=== PATIENT | male | born 1965 | race African-American/Black ===

== ENCOUNTER 2019-12-31 22:40 | Inpatient (IN) | payer SELFPAY ==
[~2019-12-31] VITALS: Ht 170.2 cm; Wt 111.0 kg
[2019-12-31 23:14] LABS: CREATININE 1.1 mg/dL (0.7-1.3); GFR 69.8
[2019-12-31 23:27] LABS: INFLUENZA A PATIENT NEGATIVE (NEGATIVE); INFLUENZA B PATIENT POSITIVE (NEGATIVE)
[2019-12-31 23:31] LABS: ALBUMIN 3.7 g/dL (3.4-5.0); ALBUMIN/GLOBULIN RATIO 1.1 (1.0-1.7); BASO # 0.1 x10^3/uL (0.0-0.2); BASO % 1 % (0-3); EOS # 0.2 x10^3/uL (0.0-0.7); EOS % 2 % (0-3); MAGNESIUM 2.1 mg/dL (1.8-2.4); MEAN CORPUSCULAR HEMOGLOBIN 26 pg (25-35); MEAN CORPUSCULAR VOLUME 84 fL (79-100); MONO # 0.8 x10^3/uL (0.0-1.1); MONO % 9 % (0-9); NEUT # 5.3 x10^3uL (1.8-7.7); TOTAL BILIRUBIN 0.3 mg/dL (0.2-1.0)
[2019-12-31 23:33] LABS: RED BLOOD COUNT 5.41 x10^6/uL (4.30-5.70)
[2019-12-31 23:34] LABS: HEMATOCRIT 45.6 % (39.0-53.0); LYMPH # 2.6 x10^3/uL (1.0-4.8); LYMPH % 29 % (24-48); MEAN CORPUSCULAR HGB CONC 31 g/dL (31-37); NEUT % 59 % (31-73); PLATELET COUNT 196 x10^3/uL (140-400); RED CELL DISTRIBUTION WIDTH 16.1 % (11.5-14.5)
[2019-12-31] MEDS ORDERED: DEXAMETHASONE SOD PHOS 10 MG/ML VIAL ONE (23:57)
[2019-12-31] MEDS ORDERED: ASPIRIN 325 MG TABLET ONE (23:57)
[2020-01-01] VITALS (18 sets, daily range): BP systolic 115–178; BP diastolic 49–103
--- NOTE | 2020-01-01 00:14 | PHYS DOC ---
Past History Past Medical History: CAD (?), High Cholesterol, Hypertension, Other Additional Past Medical Histor: 7 mild CA no stents placed, Prediabetic Past Surgical History: Other Additional Past Surgical Histo: back and hernia Smoking: Cigarettes Alcohol Use: None Drug Use: None Social History Narrative: drug use 32 years ago Adult General Chief Complaint Chief Complaint: CHEST PAIN HPI HPI 54-year-old male presents with report of chest pain and cough times one week. Reports associated nasal congestion. Reports generalized malaise and weakness. Patient reports significant cardiac history including several "mild heart attacks ". Risk factors also include hypertension, high cholesterol, smoking history, and prediabetes. Denies trauma. Denies leg swelling or calf tenderness. Review of Systems Review of Systems Constitutional: Denies fever or chills; reports generalized malaise Eyes: Denies redness or eye pain HENT: Reports nasal congestion; denies sore throat Respiratory: Reports cough and shortness of breath Cardiovascular: Reports chest pain and palpitations GI: Denies abdominal pain, nausea, or vomiting : Denies dysuria or hematuria Musculoskeletal: Denies back pain or joint pain Integument: Denies rash or skin lesions Neurologic: Denies headache, focal weakness or sensory changes Complete systems were reviewed and found to be within normal limits, except as documented in this note. Current Medications Current Medications Current Medications Medications (Trade) Dose Ordered Sig/Alek Start Time Stop Time Status Last Admin Dose Admin Albuterol/ Ipratropium (Duoneb) 3 ml 1X ONCE 01/01/20 00:30 01/01/20 00:31 Aspirin (Armin Aspirin) 325 mg STK-MED ONCE 12/31/19 23:57 12/31/19 23:57 DC Dexamethasone Sodium Phosphate (Decadron) 10 mg STK-MED ONCE 12/31/19 23:57 12/31/19 23:57 DC Oseltamivir Phosphate (Tamiflu) 75 mg 1X ONCE 01/01/20 00:30 01/01/20 00:31 Sodium Chloride 1,000 ml @ 1,000 mls/hr 1X ONCE 01/01/20 00:30 01/01/20 01:29 Allergies Allergies Allergies Coded Allergies Type Severity Reaction Last Updated Verified No Known Drug Allergies 12/31/19 No Physical Exam Physical Exam Constitutional: Well developed, well nourished, no acute distress, non-toxic appearance HENT: Normocephalic, atraumatic, oropharynx moist Eyes: Conjunctiva normal, no discharge Neck: Normal range of motion, no tenderness, supple Cardiovascular: Heart rate normal, regular rhythm Lungs & Thorax: Bilateral breath sounds clear to auscultation, no wheezing Abdomen: Soft, no tenderness Skin: Warm, dry, no erythema, no rash Back: No tenderness, no CVA tenderness Extremities: No tenderness, ROM intact, no edema Neurologic: Alert and oriented X 3, normal motor function, normal sensory function, no focal deficits noted Psychologic: Affect anxious, judgment normal Current Patient Data Vital Signs Vital Signs Date Time Temp Pulse Resp B/P (MAP) Pulse Ox O2 Delivery O2 Flow Rate FiO2 12/31/19 23:49 72 20 136/93 (107) 97 Room Air 12/31/19 22:40 99.4 Lab Results Laboratory Tests Test 12/31/19 22:40 12/31/19 22:50 White Blood Count 9.0 x10^3/uL (4.0-11.0) Red Blood Count 5.41 x10^6/uL (4.30-5.70) Hemoglobin 14.0 g/dL (13.0-17.5) Hematocrit 45.6 % (39.0-53.0) Mean Corpuscular Volume 84 fL (79-100) Mean Corpuscular Hemoglobin 26 pg (25-35) Mean Corpuscular Hemoglobin Concent 31 g/dL (31-37) Red Cell Distribution Width 16.1 % (11.5-14.5) H Platelet Count 196 x10^3/uL (140-400) Neutrophils (%) (Auto) 59 % (31-73) Lymphocytes (%) (Auto) 29 % (24-48) Monocytes (%) (Auto) 9 % (0-9) Eosinophils (%) (Auto) 2 % (0-3) Basophils (%) (Auto) 1 % (0-3) Neutrophils # (Auto) 5.3 x10^3uL (1.8-7.7) Lymphocytes # (Auto) 2.6 x10^3/uL (1.0-4.8) Monocytes # (Auto) 0.8 x10^3/uL (0.0-1.1) Eosinophils # (Auto) 0.2 x10^3/uL (0.0-0.7) Basophils # (Auto) 0.1 x10^3/uL (0.0-0.2) Prothrombin Time 10.3 SEC (9.4-11.4) Prothrombin Time INR 1.0 (0.9-1.1) Activated Partial Thromboplast Time 27 SEC (23-33) D-Dimer (Kaleigh) 0.40 mg/L (0.00-0.50) Sodium Level 143 mmol/L (136-145) Potassium Level 4.0 mmol/L (3.5-5.1) Chloride Level 104 mmol/L (98-107) Carbon Dioxide Level 29 mmol/L (21-32) Anion Gap 10 (6-14) Blood Urea Nitrogen 19 mg/dL (8-26) Creatinine 1.1 mg/dL (0.7-1.3) Estimated GFR (Cockcroft-Gault) 69.8 BUN/Creatinine Ratio 17 (6-20) Glucose Level 100 mg/dL (70-99) H Calcium Level 9.0 mg/dL (8.5-10.1) Magnesium Level 2.1 mg/dL (1.8-2.4) Total Bilirubin 0.3 mg/dL (0.2-1.0) Aspartate Amino Transferase (AST) 41 U/L (15-37) H Alanine Aminotransferase (ALT) 40 U/L (16-63) Alkaline Phosphatase 53 U/L (46-116) Creatine Kinase 1925 U/L (39-308) H Creatine Kinase MB (Mass) 16.6 ng/mL (0.0-3.6) H Creatine Kinase MB Relative Index 0.9 % (0-4) Troponin I Quantitative 0.179 ng/mL (0-0.055) H GU-Fbf-R-Type Natriuretic Peptide 971 pg/mL (0-124) H Total Protein 7.0 g/dL (6.4-8.2) Albumin 3.7 g/dL (3.4-5.0) Albumin/Globulin Ratio 1.1 (1.0-1.7) Lipase 128 U/L (73-393) Influenza Type A (Rapid) Negative (NEGATIVE) Influenza Type B (Rapid) Positive (NEGATIVE) EKG EKG @2241 NSR at 78bpm, NO ST elevation, occasional PVC, T wave inversion V3-V6, QRS 90ms, QT/QTc 460ms/529ms Radiology/Procedures Radiology/Procedures PROCEDURE: CHEST PA & LATERAL CHEST PA LATERAL History: Chest pain. Cough. Comparison: None. Findings: Patchy bibasilar opacities. No pleural effusion. No pneumothorax. Normal heart size. Impression: 1. Patchy bibasilar opacities, most likely atelectasis. Recommend follow-up to exclude developing consolidations. Electronically signed by: Pj Mays DO (01/01/2020 2:43 AM) [id number] Course & Med Decision Making Course & Med Decision Making Pertinent Labs and Imaging studies reviewed. (See chart for details) Patient with significant cardiac risk factors presents with one-week history of chest discomfort with associated cough. EKG with T wave depressions. No prior EKG for comparison. Labs obtained and posted to chart. CPK greater than 1900. Troponin elevated at 0.17. Rapid influenza positive for influenza B. Chest x- ray with signs of atelectasis without focal opacity consistent for pneumonia. Symptomatic treatment provided with IV steroid and respiratory nebs. Concern influenza B may be causing elevation of his troponin. Patient requiring admission for further evaluation and treatment. 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 Discussed with Dr. Ricks (hospitalist) who is in agreement with transfer for admission to [facility]. Dr. Ricks requests initiation of Tamiflu despite timing of onset of symptoms. [place] on high volume and without beds available on cardiac unit. Repeat CPK and Troponin obtained with improvement. Discussed new results with Dr. Ricks, who is in agreement now to keep patient at [place] in ICU. Cardiology consult placed. Discussed findings and plan with patient, who acknowledges understanding and agreement. Dragon Disclaimer Dragon Disclaimer This electronic medical record was generated, in whole or in part, using a voice recognition dictation system. Departure Departure: Impression: Primary Impression: Elevated troponin Additional Impressions: Influenza B Elevated CPK Disposition: ADMITTED INPATIENT Admitting Physician: Padma Ricks Condition: GUARDED Referrals: PCP,NO (PCP) HEART Score for Chest Pain PTs The HEART Score for CP Pts HEART Score for Chest Pain: HEART Score for Chest Pain Response (Comments) Value History Moderately Suspicious 1 ECG Nonspecific Repolarizatio 1 Age >45 - < 65 1 Risk Factors >3 Risk Factors or Hx CAD 2 Troponin >3 x Normal Limit 2 Total 7 Risk Factors: Risk Factors: DM, Current or recent (<one month) smoker, HTN, HLP, family history of CAD, obesity. Risk Scores: Score 0 - 3: 2.5% MACE over next 6 weeks - Discharge Home Score 4 - 6: 20.3% MACE over next 6 weeks - Admit for Clinical Observation Score 7 - 10: 72.7% MACE over next 6 weeks - Early Invasive Strategies Critical Care Time Critical care time was 30 minutes which includes time at bedside, spent in discussion of patient's care with specialists and/or family members, with interpretation of laboratory and/or radiological studies and is exclusive of procedures. Problem Qualifiers LAURA AMOR DO Jan 01, 2020 00:14
[2020-01-01] MEDS ORDERED: IV NORMAL SALINE 1,000ML 1,000 ML IV ONE ×2 (00:30→03:15)
[2020-01-01] MEDS ORDERED: ASPIRIN 325 MG TABLET PO ONE (00:30)
[2020-01-01] MEDS ORDERED: DEXAMETHASONE SOD PHOS 10 MG/ML VIAL IV ONE (00:30)
[2020-01-01] MEDS ORDERED: IPRATRPIUM/ALBUTEROL 0.5/2.5MG 3 ML NEBU. NEB ONE (00:30)
[2020-01-01] MEDS ORDERED: OSELTAMIVIR 75 MG CAPSULE PO ONE (00:30)
[2020-01-01] MEDS ORDERED: OXYMETAZOLINE 0.05% NASAL SPRAY 30ML BOTTLE. NS ONE (02:30)
--- NOTE | 2020-01-01 02:46 | RAD ---
CHEST PA LATERAL History: Chest pain. Cough. Comparison: None. Findings: Patchy bibasilar opacities. No pleural effusion. No pneumothorax. Normal heart size. Impression: 1. Patchy bibasilar opacities, most likely atelectasis. Recommend follow-up to exclude developing consolidations. Electronically signed by: Pj Mays DO (01/01/2020 2:43 AM) [id number]
[2020-01-01] MEDS ORDERED: NITROGLYCERIN SUBLINGUAL 0.4 MG BOTTLE OF 25. SL PRN ×2 (03:15→14:30)
[2020-01-01] MEDS ORDERED: ONDANSETRON PF 4 MG/2 ML VIAL. IV PRN (03:15)
[2020-01-01] MEDS ORDERED: DEXTROSE 50% 25 GM / 50ML DISP.SYRIN. IV PRN (03:15)
[2020-01-01] MEDS ORDERED: ALBUTEROL SULFATE 2.5 MG/3 ML NEBU. NEB PRN (03:30)
--- NOTE | 2020-01-01 03:40 | NUR ---
Admission Note: Pt transported via EMS to ICU room 4, pt able to ambulate w/no assistance from cart to bed, VSS, no c/o pain or n/v at this time. Pt expresses a desire to eat as he has not eaten in 12 hours, admission documentation complete, pt oriented to room, call light w/i reach, bedside table near bed. Will continue to monitor.
[2020-01-01] MEDS ORDERED: AMLO10TA4 PO (03:50)
[2020-01-01] MEDS ORDERED: METF10007 PO (03:50)
[2020-01-01] MEDS ORDERED: ATOR40TA59 PO (03:54)
[2020-01-01] MEDS ORDERED: ASPI-630 PO (03:54)
[2020-01-01] MEDS ORDERED: HYDR25TA10 PO (03:54)
[2020-01-01] MEDS ORDERED: LISI40TA PO (03:54)
[2020-01-01] MEDS ORDERED: NITR0.4T22 SL (03:54)
[2020-01-01] MEDS ORDERED: CARV25TA2 PO (03:54)
[2020-01-01 04:05] LABS: CLARITY,URINE CLEAR; COLOR,URINE AMBER
[2020-01-01 04:06] LABS: BACTERIA,URINE FEW /HPF (0-FEW); BILIRUBIN,URINE NEG (NEG); GLUCOSE,URINE NEG (NEG); HYALINE CASTS, URINE OCC /HPF; NITRITE,URINE NEG (NEG); SQUAMOUS EPITHELIAL CELL,UR OCC /LPF; UROBILINOGEN,URINE 0.2 mg/dL (0.2 mg/dL); WBC,URINE OCC /HPF (0-4)
--- NOTE | 2020-01-01 04:51 | NUR ---
IV fluids ordered in ED. Pt received 1 liter NS in ED. BNP is 971 and pt is eating and drinking. IV fluids not started on floor.
--- NOTE | 2020-01-01 05:00 | NUR ---
pt desats into low 80s when asleep. oxygen 3liters NC applied, sating 90%
[2020-01-01] MEDS ORDERED: OXYMETAZOLINE 0.05% NASAL SPRAY 30ML BOTTLE. NS PRN (07:45)
[2020-01-01] MEDS: INSULIN LISPRO 300 UNITS/3 ML VIAL. SQ SCH ×3 (08:00→17:00)
[2020-01-01] MEDS ORDERED: amLODIPine BESYLATE 10 MG TABLET PO SCH ×3 (09:00→21:00)
--- NOTE | 2020-01-01 09:20 | PDOC2 ---
CONSULT Date of Admission DATE: 01/01/20 TIME: 09:20 Reason for Consult: Slightly elevated troponin level Referring Physician: Dr. Ricks Chief Complaint Cough, shortness of breath and chest pain Source: Chart review, Patient Problem List Problems Medical Problems: (1) Elevated CPK Status: Acute (2) Elevated troponin Status: Acute (3) Influenza B Status: Acute History of Present Illness 54-year-old -[place] male presented complaining of cough, shortness of breath and chest pain. He was diagnosed with influenza B and admitted for further management. His CPK and troponin level were abnormal prompting cardiology consultation. Patient stated that he had mild heart attack in the past but cardiac catheterization in November 2018 and apparently did not show any significant blockages. He denied any palpitations or syncope. Past Medical History Hypertension Hyperlipidemia DM-2 Past Surgical History Hernia and back surgery Family History Negative for premature coronary artery disease Social History Patient admitted to smoking cigarettes but denied any alcohol abuse. He stopped using drugs approximately 30 years ago. Current Medications Current Medications Albuterol/ Ipratropium (Duoneb) 3 ml 1X ONCE NEB Last administered on 01/01/20at 00:30; Start 01/01/20 at 00:30; Stop 01/01/20 at 00:31; Status DC Aspirin (Armin Aspirin) 325 mg 1X ONCE PO Last administered on 01/01/20at 00:03; Start 01/01/20 at 00:30; Stop 01/01/20 at 00:31; Status DC Dexamethasone Sodium Phosphate (Decadron) 10 mg 1X ONCE IV Last administered on 01/01/20at 00:03; Start 01/01/20 at 00:30; Stop 01/01/20 at 00:31; Status DC Aspirin (Armin Aspirin) 325 mg STK-MED ONCE .ROUTE ; Start 12/31/19 at 23:57; Stop 12/31/19 at 23:57; Status DC Dexamethasone Sodium Phosphate (Decadron) 10 mg STK-MED ONCE .ROUTE ; Start 12/31/19 at 23:57; Stop 12/31/19 at 23:57; Status DC Sodium Chloride 1,000 ml @ 1,000 mls/hr 1X ONCE IV Last administered on 01/01/20at 00:33; Start 01/01/20 at 00:30; Stop 01/01/20 at 01:29; Status DC Oseltamivir Phosphate (Tamiflu) 75 mg 1X ONCE PO Last administered on 01/01/20at 00:32; Start 01/01/20 at 00:30; Stop 01/01/20 at 00:31; Status DC Oxymetazoline HCl (Afrin) 2 spray 1X ONCE NS Last administered on 01/01/20at 02:41; Start 01/01/20 at 02:30; Stop 01/01/20 at 02:31; Status DC Ondansetron HCl (Zofran) 4 mg PRN Q4HRS PRN IV NAUSEA/VOMITING; Start 01/01/20 at 03:15; Stop 01/02/20 at 03:14 Nitroglycerin (Nitrostat) 0.4 mg PRN Q5MIN PRN SL CHEST PAIN; Start 01/01/20 at 03:15; Stop 01/02/20 at 03:14 Albuterol Sulfate (Ventolin) 2.5 mg PRN Q4HRS PRN NEB WHEEZING; Start 01/01/20 at 03:30 Insulin Human Lispro (HumaLOG) 0-5 UNITS TIDWMEALS SQ ; Start 01/01/20 at 08:00 Dextrose (Dextrose 50%-Water Syringe) 12.5 gm PRN Q15MIN PRN IV SEE COMMENTS; Start 01/01/20 at 03:15 Sodium Chloride 1,000 ml @ 125 mls/hr 1X ONCE IV ; Start 01/01/20 at 03:15; Stop 01/01/20 at 11:14 Oxymetazoline HCl (Afrin) 2 spray PRN BID PRN NS NASAL CONGESTION; Start 01/01/20 at 07:45 Active Scripts Active Reported NITROGLYCERIN SubLingual (Nitroglycerin) 0.4 Mg Tab.subl 0.4 Mg SL PRN Q5MIN PRN Atorvastatin Calcium 40 Mg Tablet 40 Mg PO QHS Aspirin 81 Mg Tab.chew 81 Mg PO [id number] Hydrochlorothiazide 25 Mg Tablet 25 Mg PO DAILY Lisinopril 40 Mg Tablet 40 Mg PO DAILY Carvedilol 25 Mg Tablet 25 Mg PO BIDWMEALS Metformin Hcl 1,000 Mg Tablet 1,000 Mg PO BIDWMEALS Norvasc (Amlodipine Besylate) 10 Mg Tablet 10 Mg PO DAILY Allergies: Coded Allergies: No Known Drug Allergies (Unverified , 12/31/19) PSYCHOLOGICAL ROS: No: Hallucinations Eyes: No: Loss of vision HEENT: No: Epistaxis Respiratory: YES: Cough, Shortness of breath Cardiovascular: yes: Chest Pain Gastrointestinal: No: Vomiting, Diarrhea Neurological: No: Seizures Skin: No: Rash General: Alert, Oriented X3 HEENT: Atraumatic Lungs: Other (scattered crepitations bilaterally) Heart: Regular rate Abdomen: Soft Extremities: No edema VITALS Vital Signs Date Time Temp Pulse Resp B/P (MAP) Pulse Ox O2 Delivery O2 Flow Rate FiO2 01/01/20 09:17 67 20 174/91 (118) 96 Nasal Cannula 3.0 01/01/20 07:47 98.6 Labs Laboratory Tests Test 12/31/19 22:40 12/31/19 22:50 01/01/20 01:38 01/01/20 02:45 White Blood Count 9.0 x10^3/uL (4.0-11.0) Red Blood Count 5.41 x10^6/uL (4.30-5.70) Hemoglobin 14.0 g/dL (13.0-17.5) Hematocrit 45.6 % (39.0-53.0) Mean Corpuscular Volume 84 fL (79-100) Mean Corpuscular Hemoglobin 26 pg (25-35) Mean Corpuscular Hemoglobin Concent 31 g/dL (31-37) Red Cell Distribution Width 16.1 % (11.5-14.5) Platelet Count 196 x10^3/uL (140-400) Neutrophils (%) (Auto) 59 % (31-73) Lymphocytes (%) (Auto) 29 % (24-48) Monocytes (%) (Auto) 9 % (0-9) Eosinophils (%) (Auto) 2 % (0-3) Basophils (%) (Auto) 1 % (0-3) Neutrophils # (Auto) 5.3 x10^3uL (1.8-7.7) Lymphocytes # (Auto) 2.6 x10^3/uL (1.0-4.8) Monocytes # (Auto) 0.8 x10^3/uL (0.0-1.1) Eosinophils # (Auto) 0.2 x10^3/uL (0.0-0.7) Basophils # (Auto) 0.1 x10^3/uL (0.0-0.2) Prothrombin Time 10.3 SEC (9.4-11.4) Prothromb Time International Ratio 1.0 (0.9-1.1) Activated Partial Thromboplast Time 27 SEC (23-33) D-Dimer (Kaleigh) 0.40 mg/L (0.00-0.50) Sodium Level 143 mmol/L (136-145) Potassium Level 4.0 mmol/L (3.5-5.1) Chloride Level 104 mmol/L (98-107) Carbon Dioxide Level 29 mmol/L (21-32) Anion Gap 10 (6-14) Blood Urea Nitrogen 19 mg/dL (8-26) Creatinine 1.1 mg/dL (0.7-1.3) Estimated GFR (Cockcroft-Gault) 69.8 BUN/Creatinine Ratio 17 (6-20) Glucose Level 100 mg/dL (70-99) Calcium Level 9.0 mg/dL (8.5-10.1) Magnesium Level 2.1 mg/dL (1.8-2.4) Total Bilirubin 0.3 mg/dL (0.2-1.0) Aspartate Amino Transf (AST/SGOT) 41 U/L (15-37) Alanine Aminotransferase (ALT/SGPT) 40 U/L (16-63) Alkaline Phosphatase 53 U/L (46-116) Creatine Kinase 1925 U/L (39-308) 1735 U/L (39-308) Creatine Kinase MB (Mass) 16.6 ng/mL (0.0-3.6) 17.3 ng/mL (0.0-3.6) Creatine Kinase MB Relative Index 0.9 % (0-4) 1.0 % (0-4) Troponin I Quantitative 0.179 ng/mL (0-0.055) 0.169 ng/mL (0-0.055) KA-Api-E-Type Natriuretic Peptide 971 pg/mL (0-124) Total Protein 7.0 g/dL (6.4-8.2) Albumin 3.7 g/dL (3.4-5.0) Albumin/Globulin Ratio 1.1 (1.0-1.7) Lipase 128 U/L (73-393) Influenza Type A (Rapid) Negative (NEGATIVE) Influenza Type B (Rapid) Positive (NEGATIVE) Urine Collection Type Unknown Urine Color Geovanna Urine Clarity Clear Urine pH 6.0 Urine Specific Conway >=1.030 Urine Protein 100 mg/dl (NEG-TRACE) Urine Glucose (UA) Neg mg/dL (NEG) Urine Ketones (Stick) Neg mg/dL (NEG) Urine Blood Small (NEG) Urine Nitrite Neg (NEG) Urine Bilirubin Neg (NEG) Urine Urobilinogen Dipstick 0.2 mg/dL (0.2 mg/dL) Urine Leukocyte Esterase Neg (NEG) Urine RBC 1-2 /HPF (0-2) Urine WBC Occ /HPF (0-4) Urine Squamous Epithelial Cells Occ /LPF Urine Bacteria Few /HPF (0-FEW) Urine Hyaline Casts Occ /HPF Urine Mucus Slight /LPF Test 01/01/20 06:13 01/01/20 08:12 Troponin I Quantitative 0.104 ng/mL (0-0.055) Glucose (Fingerstick) 199 mg/dL (70-99) Assessment/Plan 1. Influenza B: Treat per IM 2. Chest pain with atypical features, reproducible to palpation and most probably musculoskeletal related to his cough. Troponin level slightly elevated, most probably demand ischemia/type II. Elevated CK levels probably secondary to influenza. Patient apparently had cardiac catheterization in November 2018 that did not show any significant coronary artery disease. Doubt ACS. We will consider ischemic evaluation as an outpatient. 3. Hypertension: Well-controlled 4. Hyperlipidemia: Continue statin therapy 5. Diabetes mellitus type 2: Treat per IM Thank you for your consultation JAKI MATHEW MD Jan 01, 2020 09:20
--- NOTE | 2020-01-01 09:28 | NUR ---
Cardiology consult called. Dr. Gunn at bedside.
--- NOTE | 2020-01-01 15:23 | HP ---
ADMIT DATE: 01/01/2020 HISTORY OF PRESENT ILLNESS: The patient is a 54-year-old -[place]wegian male patient, currently in senior care house, who presented to the Emergency Room with complaint of chest pain, cough for more than 2 weeks accordingly, also nasal congestion with generalized malaise and weakness. There was also significant cardiac history including several mild heart attacks. He has multiple risk factors including hypertension, hypercholesterolemia. He is a smoker and he, according to him, is pre-diabetic. He apparently was evaluated in the Emergency Room and was found to have elevated CK at 1925. His troponin was elevated at 0.179 and therefore, the patient was admitted for further evaluation. Initially, the plan was for him to be transferred to [facility]; however, in consultation with the stone driller helper, a decision was made to admit him to [facility] ICU and the stone driller helper will evaluate him. PAST MEDICAL HISTORY: Significant for hypertension, hyperlipidemia. He claimed that he had cardiac catheterization when he was in [place], although he claims that he has multiple heart attacks. He said that when they did cardiac catheterization, he was told there was no abnormality detected. He apparently was also told that he is pre-diabetic. He definitely has multiple blood sugar values at above 200 and by definition makes him diabetic, but he refused to acknowledge that. PAST SURGICAL HISTORY: Significant for cardiac catheterization. He has also back surgery and hernia repair. FAMILY HISTORY: He said that he does not know his biological father. His mother is still alive and has many brothers and sisters, but there is no family history of premature coronary artery disease. SOCIAL HISTORY: He is . He smokes, but does not drink alcohol or use any drugs currently. He used illicit drugs long time ago. REVIEW OF SYSTEMS: As per history of present illness. ALLERGIES: He has no known drug allergies. MEDICATIONS: He is currently on following medications: He is on atorvastatin calcium 40 mg at bedtime. He is on nitroglycerin 0.4 mg sublingually every 5 minutes, carvedilol 25 mg twice a day, amlodipine besylate 10 mg once a day, lisinopril 40 mg once a day, aspirin 81 mg once a day, hydrochlorothiazide 25 mg daily and metformin 1000 mg twice a day. PHYSICAL EXAMINATION: GENERAL: On arrival to the Emergency Room, the patient looked well and was clearly in no apparent respiratory distress. No pallor, jaundice, cyanosis or thyromegaly. No jugular venous distention. No lower limb edema. VITAL SIGNS: His heart rate was 82, blood pressure was 181/81, temperature was 99.4, respiratory rate was 18 and oxygen saturation was 94% on room air. HEAD, EYES, EARS, NOSE AND THROAT: Showed normocephalic, atraumatic. NECK: Supple. HEART: Showed normal first and second heart sounds. No gallop or murmur. CHEST: Showed central trachea, equal bilateral expansion, air entry, vesicular sounds. I could not really appreciate any crepitation or rhonchi. ABDOMEN: Distended, soft, nontender. NEUROLOGIC: He is awake, alert, responding appropriately. All cranial nerves intact. EXTREMITIES: He moves all extremities without difficulty, ambulates without assistance or assistive devices. LABORATORY DATA: On admission showed a prothrombin time 10.3, INR 1, aPTT was 2700. D-dimer was 0.4. His white cell count was 9000, hemoglobin 14, hematocrit 44, MCV 94 and platelet count of 196,000 with normal manual differential. His chemistry showed a serum sodium 143, potassium 4, chloride 104, bicarbonate 29, anion gap of 10, BUN 19, creatinine 1.1, estimated GFR was 70 mL per minute, his glucose was 100, calcium was 9, magnesium was 2.1. Total bilirubin, AST, ALT, alkaline phosphatase were normal. CK was 1925. First set of cardiac enzymes showed troponin to be 0.179. Beta natriuretic peptide was 971. Total protein was 7, albumin was 3.7. Lipase was 28. Urinalysis was essentially unremarkable, apart from a moderate amount of proteinuria. His influenza A was negative. Influenza B was positive. He was treated with Tamiflu 75 mg started and given also dexamethasone as well as breathing treatment and aspirin and was admitted to do 2 more sets of cardiac enzyme and to consult the cardiology team. His chest x-ray showed that he has patchy bibasilar opacities, most likely atelectasis. Recommend possibility also normal likelihood that he might have also community-acquired pneumonia and I added Levaquin 750 mg IV. We will follow him on a daily basis. I continued the Tamiflu at 75 mg twice a day, continued all his other medications and if he is feeling much better tomorrow, we can discharge him to continue treatment as an outpatient. JONN KRISHNAMURTHY MD DR: Soledad JOB#: [id number] / [id number]
[2020-01-01] MEDS: LISINOPRIL 20 MG TABLET PO SCH (16:14)
[2020-01-01] MEDS: metFORMIN 500 MG TABLET PO SCH (17:00)
[2020-01-01] MEDS: CARVEDILOL 12.5 MG TABLET PO SCH (17:53)
[2020-01-01] MEDS: LACTOBACILLUS RHAMNOSUS GG 1 CAPSULE. PO SCH (20:40)
[2020-01-01] MEDS: OSELTAMIVIR 75 MG CAPSULE PO SCH (20:41)
[2020-01-01] MEDS ORDERED: ATORVASTATIN CALCIUM 20 MG TABLET PO SCH (21:00)
[2020-01-02] VITALS (12 sets, daily range): BP systolic 105–163; BP diastolic 45–98
--- NOTE | 2020-01-02 05:30 | NUR ---
Pt had a better night with O2 on while sleeping, O2 sats 90-96% when sleeping. Pt refuses Insulin or need for daily Metformin, stating "I don't really think I am diabetic....I have taken that Metformin like 10 times in the last 2 years". Pt needs reenforcement on proper Diabetic diet choices, pt attempted to order either Scali food or pizza last night after eating 2 meal trays for dinner. HS blood sugar was 142. Pt hopeful for DC back to [facility] and follow up with [facility].
[2020-01-02 06:52] LABS: ALBUMIN 3.4 g/dL (3.4-5.0); ALBUMIN/GLOBULIN RATIO 0.9 (1.0-1.7); CALCIUM 8.5 mg/dL (8.5-10.1); CREATININE 1.2 mg/dL (0.7-1.3); GFR 76.3; TOTAL BILIRUBIN 0.2 mg/dL (0.2-1.0); TOTAL PROTEIN 7.1 g/dL (6.4-8.2)
[2020-01-02 07:17] LABS: HEMATOCRIT 43.8 % (39.0-53.0); HEMOGLOBIN 13.5 g/dL (13.0-17.5); RED BLOOD COUNT 5.14 x10^6/uL (4.30-5.70); RED CELL DISTRIBUTION WIDTH 16.3 % (11.5-14.5); WHITE BLOOD COUNT 10.8 x10^3/uL (4.0-11.0)
[2020-01-02] MEDS: INSULIN LISPRO 300 UNITS/3 ML VIAL. SQ SCH ×3 (07:50→17:00)
[2020-01-02] MEDS: metFORMIN 500 MG TABLET PO SCH ×2 (07:50→17:00)
--- NOTE | 2020-01-02 07:54 | PDOC ---
CARDIO Progress Notes Date & Time Date of Service DATE: 01/02/20 TIME: 07:48 Time of Evaluation 07:48 Subjective Notes No dizziness, diaphoresis, SOA, or syncope. Central chest tenderness upon palpitation Vitals Vitals Vital Signs Date Time Temp Pulse Resp B/P (MAP) Pulse Ox O2 Delivery O2 Flow Rate FiO2 01/02/20 06:00 66 20 116/67 (83) Nasal Cannula 2.0 01/02/20 05:10 98.2 97 Weight Weight [ ] Input and Output I.O. Intake and Output 01/02/20 07:00 Intake Total 1954 ml Output Total 400 ml Balance 1554 ml Intake Oral 1800 ml IV Total 154 ml Output Urine Total 400 ml # Voids 3 # Bowel Movements 2 Laboratory Labs Laboratory Tests Test 12/31/19 22:40 12/31/19 22:50 01/01/20 01:38 01/01/20 02:45 White Blood Count 9.0 x10^3/uL (4.0-11.0) Red Blood Count 5.41 x10^6/uL (4.30-5.70) Hemoglobin 14.0 g/dL (13.0-17.5) Hematocrit 45.6 % (39.0-53.0) Mean Corpuscular Volume 84 fL (79-100) Mean Corpuscular Hemoglobin 26 pg (25-35) Mean Corpuscular Hemoglobin Concent 31 g/dL (31-37) Red Cell Distribution Width 16.1 % (11.5-14.5) Platelet Count 196 x10^3/uL (140-400) Neutrophils (%) (Auto) 59 % (31-73) Lymphocytes (%) (Auto) 29 % (24-48) Monocytes (%) (Auto) 9 % (0-9) Eosinophils (%) (Auto) 2 % (0-3) Basophils (%) (Auto) 1 % (0-3) Neutrophils # (Auto) 5.3 x10^3uL (1.8-7.7) Lymphocytes # (Auto) 2.6 x10^3/uL (1.0-4.8) Monocytes # (Auto) 0.8 x10^3/uL (0.0-1.1) Eosinophils # (Auto) 0.2 x10^3/uL (0.0-0.7) Basophils # (Auto) 0.1 x10^3/uL (0.0-0.2) Prothrombin Time 10.3 SEC (9.4-11.4) Prothromb Time International Ratio 1.0 (0.9-1.1) Activated Partial Thromboplast Time 27 SEC (23-33) D-Dimer ([place]) 0.40 mg/L (0.00-0.50) Sodium Level 143 mmol/L (136-145) Potassium Level 4.0 mmol/L (3.5-5.1) Chloride Level 104 mmol/L (98-107) Carbon Dioxide Level 29 mmol/L (21-32) Anion Gap 10 (6-14) Blood Urea Nitrogen 19 mg/dL (8-26) Creatinine 1.1 mg/dL (0.7-1.3) Estimated GFR (Cockcroft-Gault) 69.8 BUN/Creatinine Ratio 17 (6-20) Glucose Level 100 mg/dL (70-99) Calcium Level 9.0 mg/dL (8.5-10.1) Magnesium Level 2.1 mg/dL (1.8-2.4) Total Bilirubin 0.3 mg/dL (0.2-1.0) Aspartate Amino Transf (AST/SGOT) 41 U/L (15-37) Alanine Aminotransferase (ALT/SGPT) 40 U/L (16-63) Alkaline Phosphatase 53 U/L (46-116) Creatine Kinase 1925 U/L (39-308) 1735 U/L (39-308) Creatine Kinase MB (Mass) 16.6 ng/mL (0.0-3.6) 17.3 ng/mL (0.0-3.6) Creatine Kinase MB Relative Index 0.9 % (0-4) 1.0 % (0-4) Troponin I Quantitative 0.179 ng/mL (0-0.055) 0.169 ng/mL (0-0.055) QN-Mtu-A-Type Natriuretic Peptide 971 pg/mL (0-124) Total Protein 7.0 g/dL (6.4-8.2) Albumin 3.7 g/dL (3.4-5.0) Albumin/Globulin Ratio 1.1 (1.0-1.7) Lipase 128 U/L (73-393) Influenza Type A (Rapid) Negative (NEGATIVE) Influenza Type B (Rapid) Positive (NEGATIVE) Urine Collection Type Unknown Urine Color Geovanna Urine Clarity Clear Urine pH 6.0 Urine Specific Darrow >=1.030 Urine Protein 100 mg/dl (NEG-TRACE) Urine Glucose (UA) Neg mg/dL (NEG) Urine Ketones (Stick) Neg mg/dL (NEG) Urine Blood Small (NEG) Urine Nitrite Neg (NEG) Urine Bilirubin Neg (NEG) Urine Urobilinogen Dipstick 0.2 mg/dL (0.2 mg/dL) Urine Leukocyte Esterase Neg (NEG) Urine RBC 1-2 /HPF (0-2) Urine WBC Occ /HPF (0-4) Urine Squamous Epithelial Cells Occ /LPF Urine Bacteria Few /HPF (0-FEW) Urine Hyaline Casts Occ /HPF Urine Mucus Slight /LPF Test 01/01/20 06:13 01/01/20 08:12 01/01/20 09:05 01/01/20 11:35 Troponin I Quantitative 0.104 ng/mL (0-0.055) 0.085 ng/mL (0-0.055) Glucose (Fingerstick) 199 mg/dL (70-99) 214 mg/dL (70-99) Test 01/01/20 17:25 01/01/20 20:37 01/02/20 05:55 Glucose (Fingerstick) 143 mg/dL (70-99) 142 mg/dL (70-99) White Blood Count 10.8 x10^3/uL (4.0-11.0) Red Blood Count 5.14 x10^6/uL (4.30-5.70) Hemoglobin 13.5 g/dL (13.0-17.5) Hematocrit 43.8 % (39.0-53.0) Mean Corpuscular Volume 85 fL (79-100) Mean Corpuscular Hemoglobin 26 pg (25-35) Mean Corpuscular Hemoglobin Concent 31 g/dL (31-37) Red Cell Distribution Width 16.3 % (11.5-14.5) Platelet Count 192 x10^3/uL (140-400) Sodium Level 141 mmol/L (136-145) Potassium Level 4.0 mmol/L (3.5-5.1) Chloride Level 105 mmol/L (98-107) Carbon Dioxide Level 31 mmol/L (21-32) Anion Gap 5 (6-14) Blood Urea Nitrogen 22 mg/dL (8-26) Creatinine 1.2 mg/dL (0.7-1.3) Estimated GFR (Cockcroft-Gault) 76.3 BUN/Creatinine Ratio 18 (6-20) Glucose Level 181 mg/dL (70-99) Calcium Level 8.5 mg/dL (8.5-10.1) Total Bilirubin 0.2 mg/dL (0.2-1.0) Aspartate Amino Transf (AST/SGOT) 27 U/L (15-37) Alanine Aminotransferase (ALT/SGPT) 36 U/L (16-63) Alkaline Phosphatase 50 U/L (46-116) Total Protein 7.1 g/dL (6.4-8.2) Albumin 3.4 g/dL (3.4-5.0) Albumin/Globulin Ratio 0.9 (1.0-1.7) Microbiology Micro Microbiology 01/01/20 Blood Culture - Preliminary, Resulted NO GROWTH AFTER 1 DAY... Physical Exams HEENT: Neck Supple W Full Motion Chest: Symmetric Lungs: Clear to Auscultation Heart: S1S2, RRR Abdomen: Soft N/T Extremities: No Edema Neurology: alert, oriented, follow commands Assessment Assessment 1. Influenza B: Treat per IM 2. Chest pain, atypical. Most probably MSK secondary to cough as it is reproducible with palpitation. 3. Mild troponin elevation; trop peak 0.179. Most probably type II, demand ischemia in setting of influenza. Report C last year at [place] without any significant CAD. 4. Rhabdo; most probably secondary to influenza 3. Hypertension; controlled 4. Hyperlipidemia; statin therapy 5. Diabetes, II; as per PCP Recommendations Consider outpatient ischemic eval. ASA Trend CK Follow up with Dr. Gunn upon discharge. F/u card provided. TRISH BOND APRN Jan 02, 2020 07:54
[2020-01-02] MEDS ORDERED: ASPIRIN 81 MG TAB.CHEW PO SCH (08:00)
--- NOTE | 2020-01-02 08:30 | NUR ---
IP: Patient + influenza, requires droplet precautions until 5 days of treatment and no fever x 24 hours whichever is longer.
[2020-01-02] MEDS ORDERED: hydroCHLOROthiazide 25 MG TABLET PO SCH (09:00)
[2020-01-02] MEDS: LISINOPRIL 20 MG TABLET PO SCH (09:11)
[2020-01-02] MEDS: OSELTAMIVIR 75 MG CAPSULE PO SCH (09:13)
[2020-01-02] MEDS: CARVEDILOL 12.5 MG TABLET PO SCH ×2 (09:14→17:27)
[2020-01-02] MEDS: LACTOBACILLUS RHAMNOSUS GG 1 CAPSULE. PO SCH (09:14)
--- NOTE | 2020-01-02 14:15 | NUR ---
Patient o2 sats have remains 95% on room air, no SOA upon exertion and was able to ambulate to restroom without difficulty. Nurse took O2 off patient this morning, states his oxygen was normal, patient stated I have a stuffy nose now when its not on and stated that he needed it on. Nurse educated patient on Oxygen and reasoning to having it when he was sleeping. Nurse asked patient this morning if he was having any pain, patient stated yes to my right side, stated this is nothing new and he has had that since November 2018. Cardiology here this morning, no new orders at this time except lipids, a1c and repeat ck. Patient also refuses metformin and insulin, states he is not a diabetic. Explained what his blood sugar was this morning and will see what his A1c is to determine. Also discussed blood pressure management, patient stated that he does not normally take his medications every day and he is managing his blood pressures a lot better. States they usually run 170s SBP and they were 220s, nurse explained that when he is taking his medication every day his blood pressure is running 120s SBP. Continued to Educate on importance of taking medication and how this can effect the heart.
[2020-01-02] MEDS ORDERED: LEVO750T31 PO (15:57)
[2020-01-02] MEDS ORDERED: OSEL75CA PO (15:57)
--- NOTE | 2020-01-02 16:15 | NUR ---
Dr Ricks here to see patient, plan is to discharge home on Tamiflu and Levaquin for influenza b and pneumonia. Patient states he didnt know that he had pneumonia and continues to states that he has a stuffy nose and it hurts to breath. Afrin nasal spray given to patient to see if this will help with the nasal congestion. Will continue to educate patient on influenza b and pneumonia symptoms, what to do after discharging and follow up treatment. Plan to given IV levaquin prior to discharging and wants to eat dinner.
--- NOTE | 2020-01-02 17:45 | NUR ---
ABT completed, will prepare discharge instructions with patient.
--- NOTE | 2020-01-02 18:28 | NUR ---
Patient ambulated off unit at this time, with personal belongings and discharge instructions. Educated on sleep apnea, pneumonia, infleunza and diabetes. States he once he is out of [facility] he will get established with a pcp. Patients IV removed during this time.
--- NOTE | 2020-01-02 19:58 | DS ---
DATE OF DISCHARGE: 01/02/2020 HOSPITAL COURSE: The patient is a 54-year-old -[place] male patient, a resident at [facility], who came to the Emergency Room complaining of recurrent bouts of cough, nasal congestion, and aches and pains. He was evaluated in the Emergency Room and his troponin was elevated. His CK was elevated to 1925 and his troponin was 0.179 and therefore the patient was admitted. His influenza B was positive and therefore the patient was admitted to ICU in consultation with the soap inspector and was started on Tamiflu as well as IV Levaquin. He apparently had cardiac catheterization while he was in [place]. He has obviously multiple risk factors for premature coronary artery disease; however, he was evaluated by the soap inspector and they felt that the elevation of troponin was based on demand ischemia in the setting of influenza. We did start him on Tamiflu and also Levaquin. The patient has own perception of what is right and wrong in terms of his medication when he takes them and he refused to acknowledge that he is diabetic and also he takes medication erratically. Anyhow while here in the hospital, he remained afebrile throughout his stay. His white cell count was normal and therefore a decision was made to discharge him back to [facility] to continue with Tamiflu, Levaquin, and all his other medications. PHYSICAL EXAMINATION: GENERAL: When I saw him this afternoon, he was resting, sitting on edge of the bed comfortably in no apparent respiratory distress. No pallor, jaundice, cyanosis or thyromegaly. No jugular venous distention. No lower limb edema. VITAL SIGNS: His heart rate was 66, blood pressure 154/98, temperature was 98.2, respiratory rate was 20, and oxygen saturation was 97% on 2 liters of oxygen. HEAD, EYES, EARS, NOSE AND THROAT: Showed normocephalic, atraumatic. NECK: Supple. HEART: Showed normal first and second heart sounds. No gallop or murmur. CHEST: Clear to auscultation. No crepitation or rhonchi. ABDOMEN: Distended, soft, nontender. NEUROLOGIC: He was grossly intact. His intake was 1240, no output was recorded as of this morning. LABORATORY DATA: His white cell count was 10,000, hemoglobin 13.5, hematocrit 43, MCV 85 and platelet count of 192,000. Serum sodium was 141, potassium 4, chloride 105, bicarbonate 31, anion gap of 5, BUN 22, creatinine 1.2, estimated GFR was 76 mL per minute, his glucose 181, calcium was 8.5. Total bilirubin, AST, ALT, alkaline phosphatase were all normal. His CK is trending down from 1925 down to 1000. Her triglycerides were 137, total cholesterol 176, LDL cholesterol 117, VLDL was 27, HDL cholesterol was 32 and ratio was 5. DISCHARGE MEDICATIONS: He was then discharged to [facility] to continue on levofloxacin 750 mg once a day for 7 more days and Tamiflu 75 mg twice a day for 4 more days. Should continue his amlodipine 10 mg once a day, aspirin 81 mg once a day, atorvastatin calcium 40 mg at bedtime, carvedilol 25 mg twice a day, hydrochlorothiazide 25 mg daily, lisinopril 40 mg once a day, metformin 1000 mg twice a day, and nitroglycerin 0.4 mg sublingual every 5 minutes x 3. FINAL DISCHARGE DIAGNOSES: 1. Influenza B. 2. Community-acquired pneumonia. 3. Non-ST segment elevation myocardial infarction, type 2 demand ischemia. 4. Hypertension. 5. Hyperlipidemia. 6. Rhabdomyolysis. 7. Type 2 diabetes mellitus. JONN KRISHNAMURTHY MD DR: ZURI/joi JOB#: [id number] / [id number]
[2020-01-03 02:07] LABS: HEMOGLOBIN A1C 6.8 % (4.8-5.6)
== END 2020-01-02 18:28 | disposition home or self-care (01) | DRG 280 ==
LOC: ER 22:40 → ICU 01-01 03:17
PROVIDERS: ADMIT Internal Medicine; ATTEND Internal Medicine
DX: I21.A1 Myocardial infarction type 2 (principal); J10.00 Influenza due to other identified influenza virus with unspecified type of pneumonia; M62.82 Rhabdomyolysis; J98.11 Atelectasis; E78.00 Pure hypercholesterolemia, unspecified; I10 Essential (primary) hypertension; I25.2 Old myocardial infarction; F17.200 Nicotine dependence, unspecified, uncomplicated; E78.5 Hyperlipidemia, unspecified; E11.9 Type 2 diabetes mellitus without complications; I25.10 Atherosclerotic heart disease of native coronary artery without angina pectoris
CPT/HCPCS: 36415; 71046; 80053; 80061; 81001; 82550; 82553; 82947; 83036; 83690; 83735; 83880; 84484; 85025; 85027; 85379; 85610; 85730; 87040; 87804; 93005; 94640; 96361; 96374; J1100; J1815; J1956; 99291-25; J7030